=== PATIENT | female | born 1970 | race Two or more races ===

== ENCOUNTER 2020-07-02 16:07 | Emergency (ER) | payer OTHER ==
[~2020-07-02] VITALS: Ht 172.7 cm; Wt 93.0 kg
[~2020-07-02 16:07] MED LIST: N
[2020-07-02] MEDS ORDERED: CLONAZEPAM1 MG PO (16:35)
[2020-07-02] MEDS ORDERED: VISTARIL25 MG PO (18:59)
[2020-07-02] MEDS ORDERED: DICLOFENAC SODI75 MG PO (18:59)
[2020-07-02] MEDS ORDERED: NORFLEX100MG PO (18:59)
== END 2020-07-02 19:14 | disposition home or self-care (01) ==
LOC: ER 16:07
DX: R00.0 Tachycardia, unspecified (principal); M62.838 Other muscle spasm; Z03.818 Encounter for observation for suspected exposure to other biological agents ruled out

== ENCOUNTER 2021-10-10 07:37 | Outpatient (CLI) | payer OTHER ==
[~2021-10-10 07:37] MED LIST changes: +CLONAZEPAM1 MG PO; +DICLOFENAC SODI75 MG PO; +NORFLEX100MG PO; +VISTARIL25 MG PO
== END 2021-10-10 07:42 | disposition home or self-care (01) ==
LOC: SONOGRAMA 07:37
PROVIDERS: ATTEND Pathology Anatomic Pathology & Clinical Pathology
DX: E04.1 Nontoxic single thyroid nodule (principal)

== ENCOUNTER 2022-04-03 09:30 | Outpatient (CLI) | payer OTHER | END 2022-04-03 09:45 | disposition home or self-care (01) | LOC: PPH VACUNA 09:30 | PROVIDERS: ATTEND Emergency Medicine Pediatric Emergency Medicine | DX: Z23 Encounter for immunization (principal) ==

== ENCOUNTER 2022-12-04 05:34 | Emergency (ER) | payer OTHER ==
[~2022-12-04] VITALS: Ht 160 cm; Wt 74.8 kg
[2022-12-04] MEDS ORDERED: NABUMETONE750 MG PO (08:42)
[2022-12-04] MEDS ORDERED: CYCLOBENZAPRINE10 MG PO (08:42)
== END 2022-12-04 09:19 | disposition home or self-care (01) ==
LOC: ER 05:34
DX: R07.9 Chest pain, unspecified (principal); F41.8 Other specified anxiety disorders